=== PATIENT | male | born 1965 | race Caucasian/White ===

== ENCOUNTER 2018-11-16 10:12 | Emergency (ER) | payer BC ==
[2018-11-16 10:58] LABS: #Basophils 0.1 thou/uL (0.0-0.2); #Eosinphils 0.3 thou/uL (0.0-0.7); #Lymphocytes 2.2 thou/uL (1.20-3.40); #Monocytes 0.5 thou/uL (0.11-0.59); #Neutrophils 8.4 thou/uL (1.40-6.50); %Basophils 0.5 % (0.0-1.0); %Eosinophils 2.2 % (0.0-10.0); %Lymphocytes 19.4 % (21.0-51.0); %Monocytes 4.5 % (0.0-10.0); %Neutrophils 73.4 % (42.0-75.0); Hemoglobin 14.2 g/dL (14.0-18.0); Mean Corpuscular HGB CONC 32.2 g/dL (32.0-36.0); Mean Corpuscular Hemoglobin 28.9 pg (27.0-31.0); Mean Platelet Volume 9.9 fL (7.4-10.4); Platelet Count 161 thou/uL (130-400); RBC Distribution Width 13.4 % (11.5-14.5); White Blood Cell (WBC) Count 11.4 thou/uL (4.8-10.8)
[2018-11-16 11:21] LABS: ALT (SGPT) 26 U/L (8-55); AST (SGOT) 28 U/L (5-34); Albumin 3.8 g/dL (3.5-5.0); Alkaline Phosphatase 95 U/L (40-150); Anion Gap 14 mmol/L (10-20); BUN (Urea Nitrogen) 8 mg/dL (8.4-25.7); Bilirubin, Total 1.1 mg/dL (0.2-1.2); Calc. Creatinine Clearance 0 mL/min (70-130); Calcium 9.6 mg/dL (7.8-10.44); Carbon Dioxide 24 mmol/L (22-29); Chloride 98 mmol/L (98-107); Estimated GFR-MDRD 71; Globulin 2.9 g/dL (2.4-3.5); Glucose 118 mg/dL (70-105); Potassium 3.8 mmol/L (3.5-5.1); Protein, Total 6.7 g/dL (6.0-8.3); Sodium 132 mmol/L (136-145)
== END 2018-11-16 13:45 | disposition home or self-care (01) ==
LOC: ERS 10:12
DX: I87.2 Venous insufficiency (chronic) (peripheral) (principal); E78.5 Hyperlipidemia, unspecified; I10 Essential (primary) hypertension; Z79.899 Other long term (current) drug therapy
CPT/HCPCS: 36415; 80053; 83880; 85025; 85652; 86140; 99283

== ENCOUNTER 2018-11-23 13:34 | Outpatient (CLI) | payer BC ==
[~2018-11-23 13:34] MED LIST: Sodium Chloride 0.9% 15 ML NEB ONE
--- NOTE | 2018-11-23 17:46 | HP ---
HISTORY OF PRESENT ILLNESS: Mr. Elvis Thomas is a very pleasant 53-year-old gentleman, accompanied by his , who presents to the [facility] for evaluation of an ulceration of the left lateral lower leg. The patient states that on 10/21/2018, he developed cellulitis, for which he was seen in [place] on 2 occasions. The patient states that he was seen in the emergency department in [place] on another occasion. The patient states that he was seen again for left lower extremity cellulitis in the emergency department at [facility]. At this time, he was referred to the Wound Center for further evaluation and treatment. The patient states that for the cellulitis of his left lower extremity, he was placed on p.o. antibiotics, which he completed 1 week ago. PAST MEDICAL HISTORY: 1. Hypertension. 2. Obstructive sleep apnea. 3. Paroxysmal atrial fibrillation. 4. Hypothyroidism. 5. Gout. 6. Nagel esophagus. PAST SURGICAL HISTORY: 1. Cholecystectomy. 2. Neck surgery x3. 3. Back surgery x2. 4. Ankle surgery. 5. Left knee arthroscopic surgery. 6. Lap-Band placement and subsequent removal. 7. Right and left heel surgery. 8. Stimulator placement in back. MEDICATIONS: 1. Simvastatin. 2. Escitalopram. 3. Metoprolol. 4. Bumetanide. 5. Uloric. 6. Tamsulosin. 7. Famotidine. 8. Bupropion. 9. Levothyroxine. 10. Vitamin D. 11. Vitamin B. 12. Morphine. 13. Motrin. 14. Oxycodone. 15. Tizanidine. ALLERGIES: NO KNOWN DIAGNOSED ALLERGIES. SOCIAL HISTORY: Social history is negative for tobacco or EtOH use. FAMILY HISTORY: Family history is negative for diabetes mellitus or coronary artery disease. PHYSICAL EXAMINATION: VITAL SIGNS: Temperature 98.5, pulse 81, blood pressure 139/95. GENERAL: A 53-year-old gentleman, sitting on table in examination room, in no acute distress. HEENT: Normocephalic and atraumatic. NECK: No nuchal rigidity. CHEST: Clear to auscultation. CV: Regular rate and rhythm. ABDOMEN: Soft. EXTREMITIES: An ulceration of the left lateral lower leg is present, which measures approximately 8.5 x 5.0 cm. Granulation tissue is present within the wound margins. No purulent drainage is associated with the wound. No maceration of the skin of the periwound is noted. Dorsalis pedis pulse and posterior tibial pulse are both palpable on the left. Gnup-by-yvaawzno edema of the left foot and lower leg is present on exam today. NEUROLOGIC: Grossly nonfocal. ASSESSMENT AND PLAN: 1. Chronic venous hypertension with ulcer and inflammation. Xeroform, an ABD followed by the 3M Coban 2 Layer Compression System will be applied to the ulceration today. No antibiotics will be prescribed today based upon the appearance of the wound. I will see Mr. Thomas again in 1 week. Arrangements will be made for evaluation for venous ablation. The patient has already received instruction in MLD, the application of short stretch dressings, and has a lymphedema pump at home. The patient has been instructed to keep the dressings applied in clinic today, dry and intact until his followup visit in 1 week. The patient and his understand and are in agreement with the preceding treatment plan. 2. Hypertension. 3. Obstructive sleep apnea. 4. Paroxysmal atrial fibrillation. 5. Hypothyroidism. 6. Gout. 7. Nagel esophagus. Job ID: [id number]
== END 2018-11-23 13:35 | disposition home or self-care (01) ==
LOC: WCC 13:34
PROVIDERS: ATTEND Family Medicine
DX: I87.332 Chronic venous hypertension (idiopathic) with ulcer and inflammation of left lower extremity (principal); L97.929 Non-pressure chronic ulcer of unspecified part of left lower leg with unspecified severity; G47.33 Obstructive sleep apnea (adult) (pediatric); I48.0 Paroxysmal atrial fibrillation; E03.9 Hypothyroidism, unspecified; M10.9 Gout, unspecified; K22.70 Barrett's esophagus without dysplasia
CPT/HCPCS: A4218

== ENCOUNTER 2018-11-30 14:45 | Outpatient (CLI) | payer BC ==
[2018-11-30] MEDS ORDERED: Sodium Chloride 0.9% 15 ML NEB ONE (15:00)
--- NOTE | 2018-11-30 17:04 | PRG ---
DATE OF SERVICE: 11/30/2018 SUBJECTIVE: Mr. Elvis Thomas is a very pleasant 53-year-old gentleman, accompanied by his , who presents to the [facility] for evaluation of an ulceration of the left lateral lower leg. The patient stated that on 10/21/2018, he developed cellulitis for which he was seen in [place] on two occasions. The patient stated that he was seen in the emergency department in [place] on another occasion. The patient stated that he was seen again for left lower extremity cellulitis in the emergency department at [facility]. At this time, he was referred to the Wound Center for further evaluation and treatment. The patient stated that for the cellulitis of his left lower extremity, he was placed on a course of p.o. antibiotics which he completed 1 week prior to his initial presentation to the Wound Center. After being seen in the Wound Center, the ulceration of the left lateral lower leg was dressed with Xeroform gauze, and ABD, Webril, and the 3M Coban 2 Layer Compression System. SUBJECTIVE: VITAL SIGNS: Temperature 98.2, pulse 70, respirations 18, blood pressure 148/94. EXTREMITIES: The ulceration of the left lateral lower leg has healed completely. ASSESSMENT AND PLAN: 1. Chronic venous hypertension with ulcer and inflammation. As stated above, the ulceration has completely healed. The newly healed wound will be dressed with Webril followed by the 3M Coban 2 Layer Compression System to prevent any recurrent edema and/or ulceration. Arrangements will be made for evaluation for venous ablation. The patient will be contacted in regard to these arrangements. The patient has already received instruction in MLD, the application of short stretch dressings and has a lymphedema pump at home. 2. Hypertension. 3. Obstructive sleep apnea. 4. Paroxysmal atrial fibrillation. 5. Hypothyroidism. 6. Gout. 7. Nagel's esophagus. Job ID: [id number]
== END 2018-11-30 14:46 | disposition home or self-care (01) ==
LOC: WCC 14:45
PROVIDERS: ATTEND Family Medicine
DX: I87.302 Chronic venous hypertension (idiopathic) without complications of left lower extremity (principal); Z87.2 Personal history of diseases of the skin and subcutaneous tissue; I10 Essential (primary) hypertension; G47.33 Obstructive sleep apnea (adult) (pediatric); M10.9 Gout, unspecified; E03.9 Hypothyroidism, unspecified; K22.70 Barrett's esophagus without dysplasia; I48.0 Paroxysmal atrial fibrillation
CPT/HCPCS: 29581; A4218

== ENCOUNTER 2019-04-04 12:13 | Emergency (ER) | payer BC | END 2019-04-04 13:17 | disposition home or self-care (01) | LOC: ERS 12:13 | DX: S80.812A Abrasion, left lower leg, initial encounter (principal); L03.116 Cellulitis of left lower limb; I10 Essential (primary) hypertension; I48.91 Unspecified atrial fibrillation; E78.5 Hyperlipidemia, unspecified; E78.00 Pure hypercholesterolemia, unspecified; Z79.899 Other long term (current) drug therapy; Z79.01 Long term (current) use of anticoagulants; Z79.891 Long term (current) use of opiate analgesic; W55.03XA Scratched by cat, initial encounter | CPT/HCPCS: 94760 ==

== ENCOUNTER 2021-10-15 20:33 | Emergency (ER) | payer SELFPAY | END 2021-10-15 23:42 | disposition home or self-care (01) | LOC: ERS 20:33 | DX: S02.2XXA Fracture of nasal bones, initial encounter for closed fracture (principal); S06.0X0A Concussion without loss of consciousness, initial encounter; W17.89XA Other fall from one level to another, initial encounter; E78.5 Hyperlipidemia, unspecified; E78.00 Pure hypercholesterolemia, unspecified; I10 Essential (primary) hypertension; I48.91 Unspecified atrial fibrillation; Z79.899 Other long term (current) drug therapy; Z79.01 Long term (current) use of anticoagulants | CPT/HCPCS: 70450; 72125 ==

== ENCOUNTER 2023-04-05 05:34 | Emergency (ER) | payer OTHER, MEDICARE | END 2023-04-05 08:50 | disposition home or self-care (01) | LOC: ERS 05:34 | DX: S00.431A Contusion of right ear, initial encounter (principal); I10 Essential (primary) hypertension; W01.198A Fall on same level from slipping, tripping and stumbling with subsequent striking against other object, initial encounter | CPT/HCPCS: 70450; 72125 ==